=== PATIENT | female | born 1960 | race Caucasian/White ===

== ENCOUNTER 2017-02-13 23:50 | Emergency (ER) | payer SELFPAY ==
[~2017-02-13 23:50] MED LIST: ALIGN4 MG PO; AMIT25 PO; AMIT50 PO; APRES10B PO; APRES25 PO; ASAB PO; BACTROCR TOP; CALTRA600D PO; CLARITD24H PO; CLEOCIN300 MG PO; COREG3 PO; COREG6 PO; CRESTOR10 PO; Coreg PO; DITRO5 PO; DITROPAN XL10 MG PO; FLORASTOR250 MG PO; FLUCON2 PO; HUMULIN SC; IMDUR30 PO; INSNOVN SC; INSNOVR SC; JANUMET XR 50-1 EAC1 PO; JANUMET1 TA1 PO; JANUVIA; K-PHO1 OR; KLONO1 PO; LANTUS SC; LEVAQUIN750 MG PO; LEVOTHROID88 MCG PO; LISINOPRIL40 MG PO; MAGNESIUM; MAGOX4 PO; MAX25 PO; METFORMIN; MUCINEX600 MG PO; NOVOLOG SC; NYS500UDL PO; OS500+D PO; PCET PO; PRIN10 PO; PROAIR HFA INH; PROBIOTIC; PROZAC PO; PROZAC40 MG PO; SYN88 PO; VANCOMYCIN 125MG/5ML PO; VITAMIN B GUMMIES; VITAMIN B PO; VITAMIN C; X5 PO; ZESTORETIC PO
== END 2017-02-14 03:10 | disposition home or self-care (01) ==
LOC: ER 23:50
DX: R19.00 Intra-abdominal and pelvic swelling, mass and lump, unspecified site (principal); J45.909 Unspecified asthma, uncomplicated; E11.9 Type 2 diabetes mellitus without complications; Z88.5 Allergy status to narcotic agent; Z88.8 Allergy status to other drugs, medicaments and biological substances; Z79.4 Long term (current) use of insulin; Z79.899 Other long term (current) drug therapy
CPT/HCPCS: 74176; 99284; A9270-GY